=== PATIENT | female | born 1985 | race Caucasian/White ===

== ENCOUNTER 2022-06-25 15:25 | Outpatient (REF) | payer OTHER, SELFPAY | END 2022-06-25 15:26 | disposition home or self-care (01) | LOC: LBN 15:25 | PROVIDERS: PCP Nurse Practitioner Adult Health; Visit Provider Nurse Practitioner Family | DX: N39.0 Urinary tract infection, site not specified (principal) | CPT/HCPCS: 87086 ==

== ENCOUNTER 2023-04-22 01:29 | Outpatient (CLI) | payer OTHER, SELFPAY ==
--- OUTSIDE RECORDS SUMMARY | 2023-04-22 01:32 | XMS_ITS | CCD ---
Author Name Unknown Address [address] [place] [address] [phone] Organization Unknown Address [address] [place] [address] [phone] Care Team Providers [employer] Manager Name Role Phone JOAQUIN HERRERA V Attending Physician [phone] Vital Signs Unknown or Not Available. Allergies Unknown or Not Available. Procedures Unknown or Not Available. History of Immunizations Unknown or Not Available. Problems Unknown or Not Available. Results COMPREHENSIVE METABOLIC PANE L (CMP) - Collect Date/Time: 02/05/2023 12:50 Test Name Code Test Result Test Units Test Ref Rang e GLUCOSE 2345-7 130 mg/dL L=70 H=116 BUN 3094-0 13 mg/dL L=6 H=25 CREATININE 2160-0 1.04 mg/dL L=0.51 H=0.95 SODIUM SERUM 2951-2 137 mmol/L L=136 H=145 POTASSIUM SERUM 2823-3 4.2 mmol/L L=3.4 H=5 .2 CHLORIDE SERUM 2075-0 101 mmol/L L=96 H=110 CARBON DIOXIDE (CO2) 2028-9 25 mmol/L L=22 H=34 ANION GAP 46998-8 11.4 mmol/L CALCIUM SERUM 24060-9 8.9 mg/dL L=8.2 H=10. 2 BILIRUBIN TOTAL 1975-2 0.3 mg/dL L=0.0 H=1 .3 ALK. PHOS. 6768-6 54 U/L L=46 H=116 SGOT (AST) 1920-8 59 U/L L=15 H=37 SGPT (ALT) 1742-6 99 U/L L=12 H=78 TOTAL PROTEIN 2885-2 7.4 gm/dL L=6.0 H=8.0 ALBUMIN 1751-7 3.8 gm/dL L=3.4 H=5.0 AGE 37 years eGFR (non-Afr.Amer.) 95388-7 60 mL/min eGFR (Afr-Qatari) 14720-3 73 mL/min FREE THYROXINE (FREE T4)* - Collect Date/Time: 02/05/2023 12:50 Test Name Code Test Result Test Units Test Ref Rang e FREE THYROXINE 3024-7 0.86 ng/dL L=0.76 H=1 .46 HEMOGLOBIN A1C* - Collect Da te/Time: 02/05/2023 12:50 Test Name Code Test Result Test Units Test Ref Rang e Hgb A1c 4548-4 5.7 % L=3.8 H=5.7 MEAN BLOOD GLUCOSE 67023-3 104 mg/dL TSH THYROID STIMULATING HORM ONE* - Collect Date/Time: 02/05/2023 12:50 Test Name Code Test Result Test Units Test Ref Rang e TSH 3014-8 1.189 uIU/mL L=0.360 H=3.74 0 CBC W/ DIFFERENTIAL* - Colle ct Date/Time: 02/05/2023 12:50 Test Name Code Test Result Test Units Test Ref Rang e WBC 6690-2 5.53 th/cmm L=5.00 H=10.00 NEUT % 54.3 % L=40.0 H=80.0 LYMPH % 32.0 % L=10.0 H=50.0 MONO % 10469-7 9.6 % L=2.0 H=12.0 EOS % 3.4 % L=0.0 H=8.0 BASO % 0.5 % L=0.0 H=3.0 IG % 2514-8 0.2 % L=0.0 H=1.1 NRBC % 92681-0 0.0 % L=0.0 H=0.0 NEUT abs count 751-8 3.0 th/cmm L=1.6 H=8. 4 LYMPH abs count 731-0 1.8 th/cmm L=1.5 H=4 .0 MONO abs count 742-7 0.5 th/cmm L=0.2 H=1. 0 EOS abs count 711-2 0.2 th/cmm L=0.0 H=0.5 BASO abs count 704-7 0.0 th/cmm L=0.0 H=0. 2 IG abs count 79756-8 0.0 th/cmm L=0.0 H=0.1 NRBC abs count 36436-4 0.0 mil/cmm L=0.0 H=0. 0 RBC 789-8 4.24 mil/cmm L=3.90 H=5.40 HEMOGLOBIN 718-7 12.8 gm/dL L=12.0 H=16.0 HEMATOCRIT 4544-3 40 % L=37 H=47 MCV 787-2 93 fL L=82 H=92 MCH 785-6 30.2 pg L=27.0 H=31.0 MCHC 786-4 32.3 % L=32.0 H=36.0 RDW-SD 788-0 49.4 fL L=39.0 H=49.0 PLATELET COUNT 777-3 154 th/cmm L=150 H=45 0 Active Medications Unknown or Not Available. Medications Administered During Visit Unknown or Not Available. Encounters Encounter Diagnosis Diagnosis Code Start Date Hyperlipidemia [id number] 02/05/2023 Social History Unknown or Not Available. Patient Decision Aids Unknown or Not Available. Discharge Instructions You were admitted to [facility] on 02/05/2023 21:39 with a principal diagnosis of Hyperlipidemia, unspecified You had the following tests done:CBC W/ DIFFERENTIAL*COMPREHENSIVE METABOLIC PANEL (CMP)FREE THYROXINE (FREE T4)*HEMOGLOBIN A1C*TSH THYROID STIMULATING HORMONE* You were discharged from [facility] on 02/05/2023 21:39 Should you have any questions prior to discharge, please contact a member of your healthcare team. If you have left the hospital and have any questions, please contact your primary care physician. Chief Complaint and Reason For Visit Unknown or Not Available. Function Status Unknown or Not Available. Plan of Care Unknown or Not Available. Referral/Transition of Care Unknown or Not Available.
[2023-04-22 11:19] LABS: Abs Immature Grans 0.01 10^3/uL (0.0-0.06); Absolute Basophil Count 0.03 10^3/uL (0.0-0.2); Absolute Eosinophil Count 0.08 10^3/uL (0.0-0.7); Absolute Lymphocyte Count 1.38 10^3/uL (1.2-3.4); Absolute Monocyte Count 0.54 10^3/uL (0.1-0.8); Absolute Neutrophil Count 4.19 10^3/uL (1.2-6.7); Basophils % 0.5; Eosinophils % 1.3; HCT 41.8 % (36.0-46.0); HGB 13.5 g/dL (11.2-15.7); Immature Grans % 0.2; Lymphocytes % 22.2; MCH 29.2 pg (27.0-33.0); MCHC 32.3 % (32.0-36.0); MCV 90 fL (80-95); MPV 12.1 fL (8.0-11.0); Monocytes % 8.7; Neutrophils % 67.1; Platelet Count 181 10^3/uL (130-400); RBC 4.63 10^6/uL (3.93-5.22); RDW 13.2 % (11.7-14.6); RDW-SD 43.8 fL; WBC 6.23 10^3/uL (4.4-10.8)
[2023-04-22 11:45] LABS: ALT 35 U/L (14-59); AST 20 U/L (15-37); Albumin 3.9 g/dL (3.4-5.0); Alkaline Phosphatase 66 U/L (46-116); Anion Gap 10.1 mmol/L (3-11); BUN 14 mg/dL (7-18); Bilirubin, Total 0.3 mg/dL (0.2-1.0); CO2 25.9 mmol/L (21.0-32.0); CREATININE 1.1 mg/dL (0.55-1.02); Calcium 9.4 mg/dL (8.5-10.1); Chloride 102 mmol/L (98-107); Glucose 99 mg/dL (74-106); Potassium 4.3 mmol/L (3.5-5.1); Sodium 138 mmol/L (136-145); TSH (W/Ref FT4) 1.24 uIU/mL (0.36-3.74); Total Protein 7.7 g/dL (6.4-8.2)
== END 2023-04-22 01:30 | disposition home or self-care (01) ==
LOC: LBO 01:30
PROVIDERS: Absent Provider Nurse Practitioner Adult Health; PCP Nurse Practitioner Adult Health; Visit Provider Nurse Practitioner Adult Health
DX: F41.9 Anxiety disorder, unspecified (principal); M25.561 Pain in right knee
CPT/HCPCS: 36415; 80053; 84443; 85025

== ENCOUNTER 2023-05-31 01:41 | Outpatient (CLI) | payer OTHER, SELFPAY ==
[2023-05-31 14:29] LABS: Anion Gap 8.4 mmol/L (3-11); BUN 16 mg/dL (7-18); CO2 26.6 mmol/L (21.0-32.0); CREATININE 2.3 mg/dL (0.55-1.02); Calcium 9.3 mg/dL (8.5-10.1); Chloride 102 mmol/L (98-107); Estimated GFR 27.73 (mL/min/1.73m2); Glucose 133 mg/dL (74-106); Potassium 4.1 mmol/L (3.5-5.1); Sodium 137 mmol/L (136-145)
== END 2023-05-31 01:42 | disposition home or self-care (01) ==
LOC: LBO 01:41
PROVIDERS: Absent Provider Nurse Practitioner Adult Health; PCP Nurse Practitioner Adult Health; Visit Provider Nurse Practitioner Adult Health
DX: R79.89 Other specified abnormal findings of blood chemistry (principal); F41.8 Other specified anxiety disorders; F42.8 Other obsessive-compulsive disorder; F31.89 Other bipolar disorder; R73.03 Prediabetes
CPT/HCPCS: 36415; 80048

== ENCOUNTER 2023-06-06 15:37 | Outpatient (CLI) | payer OTHER, SELFPAY ==
[2023-06-06 16:32] LABS: Anion Gap 9.3 mmol/L (3-11); BUN 17 mg/dL (7-18); CO2 26.7 mmol/L (21.0-32.0); Calcium 9.1 mg/dL (8.5-10.1); Chloride 103 mmol/L (98-107); Estimated GFR 75.34 (mL/min/1.73m2); Glucose 92 mg/dL (74-106); Sodium 139 mmol/L (136-145)
== END 2023-06-06 15:38 | disposition home or self-care (01) ==
LOC: LBO 15:38
PROVIDERS: PCP Nurse Practitioner Adult Health; Visit Provider Nurse Practitioner Adult Health
DX: R79.89 Other specified abnormal findings of blood chemistry (principal)
CPT/HCPCS: 36415; 80048

== ENCOUNTER 2023-08-23 10:01 | Emergency (ER) | payer OTHER, SELFPAY ==
[2023-08-23 10:05] VITALS: BP 158/98; PULSE 91; RESP 18; TEMP 36.8; O2SAT 98
[2023-08-23 10:08] VITALS: BP 158/98; PULSE 91; RESP 18; TEMP 36.8; O2SAT 98
--- NOTE | 2023-08-23 10:15 | DI.RAD_ITS ---
Exam(s) XR CHEST 2V PA LATERAL EXAM: XR CHEST 2V PA LATERAL CLINICAL HISTORY: cough TECHNIQUE: 2D digital imaging was performed. COMPARISON: No exams were available for comparison FINDINGS: HEART: Normal size. Aorta: Not dilated. PULMONARY VASCULATURE: Normal. LUNGS: Clear. PLEURAL SPACE: No pleural effusion or pneumothorax. BONE:Unremarkable for age. Soft tissues: Unremarkable. IMPRESSION: No acute abnormality. DATA REPOSITORY: RADIATION DOSE DELIVERED:
[2023-08-23 10:53] LABS: COVID-19 PCR Negative (Negative); Influenza A PCR Negative (Negative); Influenza B PCR Negative (Negative)
[2023-08-23 10:55] LABS: RSV PCR Positive (Negative); Source Nasopharynx
[2023-08-23] MEDS: Lidocaine 5% Patch 1 PATCH TP (11:17)
--- NOTE | 2023-08-23 12:38 | ED.GENADUL_ITS ---
Discharge Plan Disposition Patient Disposition: Home Discharge Details Clinical Impression: Rib pain on right side, Viral URI with cough, Respiratory syncytial virus (RSV) Primary Care Provider: Annalise Johnson ED Provider: Jose Arnold Home Meds and New Rx's Prescriptions: New promethazine 6.25 mg/5 mL syrup 12.5 mg PO Q6H PRN (Reason: cough) Qty: 120 0RF benzonatate 100 mg capsule 100 mg PO TID PRN (Reason: cough) Qty: 30 0RF lidocaine [Lidoderm] 5 % adhesive patch,medicated 1 patch topical DAILY Qty: 5 0RF Rx Instructions: leave on most painful area for up to 12 hrs meloxicam 7.5 mg tablet 7.5 mg PO DAILY PRN (Reason: pain) Qty: 14 0RF Rx Instructions: take with food No Action multivitamin Tablet 1 tab PO QAM fluvoxamine 50 mg tablet 50 mg PO DAILY MDD 100mg/24h Qty: 30 0RF Rx Instructions: Dose decrease to discontinuation--take 1 tab x14 days, then 1/2 tab x14d, then 1/2 tab every other day x14d. melatonin 10 mg capsule 5 mg PO HS PRN disulfiram 250 mg tablet 250 mg PO DAILY Qty: 30 1RF Rx Instructions: Take 250 mg daily for 1-2 weeks, then can consider decreasing or increasing the dose based on response and tolerability clonidine HCl 0.1 mg tablet 0.1 mg PO QHS Qty: 90 0RF trazodone 100 mg tablet 100 mg PO QHS PRN (Reason: sleep) Qty: 90 0RF Ozempic 0.25 mg or 0.5 mg (2 mg/3 mL) pen injector 0.5 mg subcut QWEEK Qty: 10 3RF lamotrigine 200 mg tablet 200 mg PO DAILY Qty: 30 1RF Discharge Instructions Instructions: Viral Syndrome (ED) Additional Instructions: Take medications as prescribed. Increase fluid intake. Your RSV test is positive, so wear a mask around young children in the elderly Medical Decision Making Emergent evaluation of cough. Initial differential includes viral illness, pneumonia, rib fracture. Have a low suspicion that her chest wall pain is secondary to a pulmonary embolism or ACS. Viral testing obtained. She does have RSV. Given her age and lack of risk factors, this was explained that this is a standard cold. However she should take precautions around the elderly, and young children. Chest x-ray was obtained, reviewed and independently interpreted by me. There is no apparent rib fracture or consolidative process. I do not feel that she needs antibiotics at this time. Supportive care for her viral illness was provided with prescriptions for cough medication and anti- inflammatory. Return precautions advised. Recommend follow-up with PCP as needed. Lab Data Lab results reviewed: Yes I reviewed the patient's lab results. HPI General Date/Time Provider Initiated Documentation: 08/23/23 10:24 . Limitations to Documentation: no limitations . Information obtained by: patient . HPI Narrative: 37-year-old female with no significant past medical history presents for evaluation of cough. Reports ongoing symptoms for the last 2 weeks. Initially thought that she was getting better, but then 2 days ago her symptoms worsened. She reports that her cough feels wet. Not associated with much production. Subjective fevers at home. Having pain on the right side of her ribs when she coughs or takes a deep breath. She also noticed that she lost her voice. Related Data Home Medications Medication Instructions Recorded Confirmed multivitamin 1 tab PO QAM 03/03/23 08/23/23 disulfiram 250 mg tablet 250 mg PO DAILY #30 tabs 03/18/23 08/23/23 fluvoxamine 50 mg tablet 50 mg PO DAILY #30 tabs 06/06/23 08/23/23 melatonin 10 mg capsule 5 mg PO HS PRN 06/06/23 08/23/23 clonidine HCl 0.1 mg tablet 0.1 mg PO QHS #90 tabs 06/27/23 08/23/23 lamotrigine 200 mg tablet 200 mg PO DAILY #30 tabs 07/13/23 08/23/23 semaglutide 0.25 mg or 0.5 mg (2 0.5 mg (0.736 mL) subcut QWEEK #10 07/13/23 08/23/23 mg/3 mL) subcutaneous pen injector mL (Ozempic) trazodone 100 mg tablet 100 mg PO QHS PRN sleep #90 tabs 07/13/23 08/23/23 benzonatate 100 mg capsule 100 mg PO TID PRN cough #30 caps 08/23/23 lidocaine 5 % topical patch 1 patch topical DAILY #5 ea 08/23/23 (Lidoderm) meloxicam 7.5 mg tablet 7.5 mg PO DAILY PRN pain #14 tabs 08/23/23 promethazine 6.25 mg/5 mL oral 12.5 mg (10 mL) PO Q6H PRN cough 08/23/23 syrup #120 mL Previous Rx's Medication Instructions Recorded disulfiram 250 mg tablet 250 mg PO DAILY #30 tabs 03/18/23 fluvoxamine 50 mg tablet 50 mg PO DAILY #30 tabs 06/06/23 clonidine HCl 0.1 mg tablet 0.1 mg PO QHS #90 tabs 06/27/23 lamotrigine 200 mg tablet 200 mg PO DAILY #30 tabs 07/13/23 semaglutide 0.25 mg or 0.5 mg (2 0.5 mg (0.736 mL) subcut QWEEK #10 07/13/23 mg/3 mL) subcutaneous pen injector mL (Ozempic) trazodone 100 mg tablet 100 mg PO QHS PRN sleep #90 tabs 07/13/23 benzonatate 100 mg capsule 100 mg PO TID PRN cough #30 caps 08/23/23 lidocaine 5 % topical patch 1 patch topical DAILY #5 ea 08/23/23 (Lidoderm) meloxicam 7.5 mg tablet 7.5 mg PO DAILY PRN pain #14 tabs 08/23/23 promethazine 6.25 mg/5 mL oral 12.5 mg (10 mL) PO Q6H PRN cough 08/23/23 syrup #120 mL Allergies Allergy/AdvReac Type Severity Reaction Status Date / Time sulfamethoxazole Allergy Skin Rash Verified 08/23/23 10:07 [From Bactrim] trimethoprim [From Bactrim] Allergy Skin Rash Verified 08/23/23 10:07 macrobid Allergy Skin Rash Uncoded 08/23/23 10:07 General Stated Complaint: RespSymp EDDIE: 4 PFSH All Active Problems Respiratory syncytial virus (RSV) (Acute) Viral URI with cough (Acute) Rib pain on right side (Acute) Elevated serum creatinine (Acute ~02/2023) Obesity (Chronic) Prediabetes (Acute) OCD (obsessive compulsive disorder) (Acute) Bipolar disorder (Acute ~2022) Insomnia (Acute) Alcohol use disorder (Chronic) Hard seltzer ([place]) Irregular intermenstrual bleeding (Acute) Anxiety (Chronic) OCD tendancies; ?bipolar vs. BPD Medical History Alcohol use disorder, severe, in early remission (~03/2022) 21yo Surgical History No pertinent past surgical history Family History Mother Depression Alcohol use disorder Uterine cancer Anxiety Father Heart disease Diabetes Non-Hodgkin lymphoma Depression Sister Anxiety Social History Smoking/Tobacco Use Status: Never Smoking risk assessment performed?: Yes Alcohol Intake: former Year quit: 2022 Drug use: Never Substance use type: does not use Adopted: No Caregiver/Support person: No Foster care: No Household members: spouse and children Housing: house Number of Children: 3 Communication Needs: None Education Level: high school Do you need help understanding health information?: Never current occupation: Unemployed Pets and animals: Yes Pets and animals: cat(s) and dog(s) Sexually active: Yes Do you think of yourself as: straight/heterosexual Current gender identity: female What is your relationship status?: How often do you talk on the phone with friends or family?: never How often do you get together with friends or relatives?: twice per week How often do you attend bahai or episcopal services?: decline to answer Do you belong to any clubs or organized social groups?: no Panel score (0-1 are the most socially isolated patients): 1 What type of physical activity do you participate in: additional Details: Elliptical, [place], Treadmill Duration: 15-30 minutes/day Frequency: 5-6 times per week Seatbelt use: always Helmet use: Yes Helmet use: never Drive intox or ride w/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 Peripheral pulses 2+ and equal in all extremities Brisk capillary refill in all extremities. No peripheral edema RESP: Unlabored respiratory effort, Clear to auscultation bilaterally No wheezes rales or rhonchi Right lateral rib tender to palpation SKIN: Warm, Dry. No rashes or lesions. NEURO: No focal neurologic deficits. Course Vital Signs Vital signs: Vital Signs Temperature 36.8 C 08/23/23 10:05 Pulse 91 H 08/23/23 10:05 Respiratory Rate 18 08/23/23 10:05 Blood Pressure 158/98 H 08/23/23 10:05 Pulse Oximetry 98 08/23/23 10:05 Temperature 36.8 C 08/23/23 10:08 Temperature Source Temporal Artery Scan 08/23/23 10:08 Pulse 91 H 08/23/23 10:08 Respiratory Rate 18 08/23/23 10:08 Respiratory Effort Non-Labored, Short of Breath 08/23/23 11:15 Respiratory Depth Normal 08/23/23 11:15 Blood Pressure 158/98 H 08/23/23 10:08 Blood Pressure Position Sitting 08/23/23 10:08 Pulse Oximetry 98 08/23/23 10:08 Oxygen Delivery Method Room Air 08/23/23 10:08 Oxygen Flow Rate 0 08/23/23 10:08 Pain Level 6 08/23/23 10:08 Lab/Test Results Lab/Test Results: Laboratory Tests Range/Units 08/23/23 10:00 COVID-19 Source Nasopharynx SARS-CoV-2 (PCR) (Negative) Negative Influenza Type A (PCR) (Negative) Negative Influenza Type B (PCR) (Negative) Negative RSV (PCR) (Negative) Positive A*
== END 2023-08-23 11:16 | disposition home or self-care (01) ==
PROVIDERS: Emergency Provider Emergency Medicine; PCP Nurse Practitioner Adult Health
DX: J06.9 Acute upper respiratory infection, unspecified (principal); R07.81 Pleurodynia; B97.4 Respiratory syncytial virus as the cause of diseases classified elsewhere
CPT/HCPCS: 87637; 99283; 71046

== ENCOUNTER 2023-09-15 13:20 | Outpatient (REF) | payer OTHER, SELFPAY ==
--- NOTE | 2023-09-15 13:00 | PAPFT_PTH ---
PATIENT: Tayler Eaton LOC: [facility] U#:[id number] AGE/SX: 37/F ROOM: RE09/15/[address]: Annalise Johnson APRN : 1985 BED: DIS: 09/15/2023 SPEC #: [id number] RECD: 09/15/23 17:37 STATUS: SANDY REYumiko #: [id number] FRENCH: 09/15/23 13:[address]: Annalise Johnson DEPT: [facility] Cytology RECD BY: Danielle Cohen Tissues: 1 - CX/ENDOCX FOR PAP SMEARS Procedures: PAP THIN PREP/UVM Screening HPV DNA PROBE Comments: [id number]
== END 2023-09-15 13:21 | disposition home or self-care (01) ==
LOC: LBN 13:20
PROVIDERS: PCP Nurse Practitioner Adult Health; Visit Provider Nurse Practitioner Adult Health
DX: Z12.4 Encounter for screening for malignant neoplasm of cervix (principal); Z11.51 Encounter for screening for human papillomavirus (HPV)
CPT/HCPCS: 88142; 87624

== ENCOUNTER 2024-02-28 02:52 | Outpatient (CLI) | payer OTHER, SELFPAY ==
[2024-02-28 13:45] LABS: Hemoglobin A1C 5.6 % (<5.7)
[2024-02-28 14:02] LABS: ALT 161 U/L (14-59); AST 86 U/L (15-37); Albumin 4.2 g/dL (3.4-5.0); Alkaline Phosphatase 59 U/L (46-116); BUN 14 mg/dL (7-18); CREATININE 1.1 mg/dL (0.55-1.02); Calcium 9.7 mg/dL (8.5-10.1); Chloride 101 mmol/L (98-107); Estimated GFR 66.78 (mL/min/1.73m2); Glucose 99 mg/dL (74-106); Potassium 4.2 mmol/L (3.5-5.1); Sodium 140 mmol/L (136-145); TSH (W/Ref FT4) 0.71 uIU/mL (0.36-3.74); Total Protein 7.9 g/dL (6.4-8.2)
== END 2024-02-28 02:53 | disposition home or self-care (01) ==
LOC: LBO 02:53
PROVIDERS: PCP Nurse Practitioner Adult Health; Visit Provider Nurse Practitioner Adult Health
DX: F41.9 Anxiety disorder, unspecified (principal); F31.9 Bipolar disorder, unspecified; F42.9 Obsessive-compulsive disorder, unspecified; F19.90 Other psychoactive substance use, unspecified, uncomplicated
CPT/HCPCS: 36415; 80053; 83036; 84443

== ENCOUNTER 2024-04-02 03:19 | Outpatient (CLI) | payer OTHER, SELFPAY ==
[2024-04-02 13:09] LABS: ALT 144 U/L (14-59); AST 65 U/L (15-37); Albumin 3.4 g/dL (3.4-5.0); Alkaline Phosphatase 59 U/L (46-116); Bilirubin, Direct 0.1 mg/dL (0.0-0.2); CREATININE 0.8 mg/dL (0.55-1.02); Estimated GFR 97.87 (mL/min/1.73m2); Total Protein 7.1 g/dL (6.4-8.2)
== END 2024-04-02 03:20 | disposition home or self-care (01) ==
LOC: LBO 03:19
PROVIDERS: PCP Nurse Practitioner Adult Health; Visit Provider Nurse Practitioner Adult Health
DX: F19.90 Other psychoactive substance use, unspecified, uncomplicated (principal)
CPT/HCPCS: 36415; 80076; 82565

== ENCOUNTER 2024-06-06 05:11 | Outpatient (CLI) | payer OTHER, SELFPAY ==
[2024-06-06 16:59] LABS: ALT 131 U/L (14-59); AST 49 U/L (15-37); Alkaline Phosphatase 74 U/L (46-116); Bilirubin, Direct 0.1 mg/dL (0.0-0.2); Bilirubin, Total 0.18 mg/dL (0.2-1.0); Total Protein 7.5 g/dL (6.4-8.2)
== END 2024-06-06 05:12 | disposition home or self-care (01) ==
PROVIDERS: PCP Nurse Practitioner Adult Health; Visit Provider Nurse Practitioner Adult Health
DX: R74.01 Elevation of levels of liver transaminase levels (principal); E66.01 Morbid (severe) obesity due to excess calories; Z68.35 Body mass index [BMI] 35.0-35.9, adult; F31.9 Bipolar disorder, unspecified
CPT/HCPCS: 36415; 80076